=== PATIENT | male | born 1950 | race Caucasian/White ===

== ENCOUNTER 2018-06-14 17:32 | Emergency (ER) | payer MEDICARE, BC ==
[2018-06-14] MEDS ORDERED: AMOXICILLIN/POTASSIUM CLAV 875MG/125MG TABLET PO ONE (18:07)
[2018-06-14] MEDS ORDERED: Diph,Pert(Acell),Tet Vac 0.5 ML SYR IM ONE (18:08)
--- NOTE | 2018-06-14 18:12 | Emergency Department Record ---
History of Present Illness - General Chief Complaint: Animal Bite Stated Complaint: DOG BITE Time Seen by Provider: 06/14/18 18:00 Source: Patient Mode of Arrival: Ambulatory Limitations: No limitations - History of Present Illness Initial Comments: 67 yo male presents with a dog bite to the right thigh. He was at a local garage sale and a [place] Justice approached him and bit his right upper leg. He is unsure of the date of his last tetanus. The dogs are healthy to his knowledge and belong to the home edger tailer and can be monitored. Dr Li is his PCP MD Complaint: Animal bite Right: Thigh Animal: Dog Description: Household pet Mechanism: Bite Pain Description: Dull, Burning Context: Unprovoked Associated Symptoms: Bleeding - Related Data Home Medications Medication Instructions Recorded Confirmed Last Taken Amlodipine Bes/Olmesartan Med 1 each PO DAILY 06/14/18 06/14/18 Unknown [Amlodipine-Olmesartan 5-40 mg] Dutasteride/Tamsulosin HCl 1 tab PO DAILY 06/14/18 06/14/18 Unknown [Dutasteride-Tamsulosin 0.5-0.4] Previous Rx's Medication Instructions Recorded Amoxicillin/Potassium Clav 1 tab PO BID #13 tab 06/14/18 [Augmentin 875-125 Tablet] Allergies Allergy/AdvReac Type Severity Reaction Status Date / Time No Known Drug Allergies Allergy Verified 05/30/15 12:42 Travel Screening - Travel/Exposure Within Last 30 Days Have you traveled within the last 30 days?: No - Travel/Exposure Within Last Year Have you traveled outside the [place] in the last year?: No - Additonal Travel Details Have you been exposed to anyone with a communicable illness?: No - Travel Symptoms Symptom Screening: None Review of Systems Constitutional: Denies: Chills, Fever, Weakness Eyes: Denies: Eye discharge ENT: Denies: Congestion Respiratory: Denies: Cough Cardiovascular: Denies: Chest pain Endocrine: Denies: Fatigue Gastrointestinal: Denies: Abdominal pain, Diarrhea, Nausea, Vomiting Genitourinary: Denies: Dysuria Musculoskeletal: Reports: Myalgia. Denies: Arthralgia, Back pain Skin: Reports: Other. Denies: Bruising, Change in color Neurological: Denies: Headache Psychiatric: Denies: Anxiety Hematological/Lymphatic: Denies: Easy bleeding, Easy bruising Past Medical History - SOCIAL HISTORY Smoking Status: Never smoker Alcohol Use: Occasional Drug Use: None - RESPIRATORY Hx Respiratory Disorders: Yes Hx Sleep Apnea: Yes Hx of CPAP: Yes - CARDIOVASCULAR Hx Cardio Disorders: Yes Hx Hypertension: Yes - NEURO Hx Neuro Disorders: No - GI Hx GI Disorders: Yes Hx of Polyps: Yes - Hx Genitourinary Disorders: No - ENDOCRINE Hx Endocrine Disorders: No - MUSCULOSKELETAL Hx Musculoskeletal Disorders: No - PSYCH Hx Psych Problems: Yes Comment:: bipolar - HEMATOLOGY/ONCOLOGY Hx Hematology/Oncology Disorders: No Family Medical History Any Significant Family History?: No Hx Heart Disease: Father Hx HTN: Father, Mother Physical Exam - General General Appearance: Alert, Oriented x3, Cooperative, No acute distress Limitations: No limitations - Head Head exam: Atraumatic - Eye Eye exam: Normal appearance - ENT ENT exam: Normal exam Ear exam: Normal external inspection Nasal Exam: Normal inspection - Neck Neck exam: Normal inspection - Rectal Rectal exam: Deferred - exam: Deferred - Extremities Extremities exam: Full ROM, Normal capillary refill. negative: Normal inspection, Joint swelling, Tenderness Image of Full Body: 1 - very superficial abrasion with minimal tissue injury - Neurological Neurological exam: Alert, Oriented X3 - Psychiatric Psychiatric exam: Normal affect, Normal mood - Skin Skin exam: Other. negative: Intact Course Vital Signs 06/14/18 17:41 Temperature 97.6 F Pulse Rate 94 H Respiratory 18 Rate Blood Pressure 151/94 Pulse Ox 97 - Reevaluation(s) Reevaluation #1: 06/14/18 18:14 Tetans was updated Animal Control form completed by RN Augmentin Rx provided Disposition Disposition: Discharge Clinical Impression: Dog bite Qualifiers: Encounter type: initial encounter Qualified Code(s): W54.0XXA - Bitten by dog, initial encounter Disposition: Home, Self-Care Condition: (1) Good Instructions: Animal Bite (ED) Additional Instructions: Clean the area once daily See your doctor or return if you have pain, swelling, fever or spreading redness Take the Augmentin 2 times daily until gone Prescriptions: Amoxicillin/Potassium Clav [Augmentin 875-125 Tablet] 1 tab PO BID #13 tab Forms: Patient Portal Access Time of Disposition: 18:10 Quality - Quality Measures Quality Measures: N/A - Blood Pressure Screening Does Patient Have Any of the Following: No Blood Pressure Classification: Hypertensive Reading Systolic Measurement: 148 Diastolic Measurement: 78 Screening for High Blood Pressure: < Pre-Hypertensive BP, F/U Documented > [ [id number]] Pre-Hypertensive Follow-up Interventions: Referral to alternative/primary care provider.
== END 2018-06-14 18:28 | disposition home or self-care (01) ==
LOC: ER 17:32
DX: S71.151A Open bite, right thigh, initial encounter (principal); W54.0XXA Bitten by dog, initial encounter; Y92.009 Unspecified place in unspecified non-institutional (private) residence as the place of occurrence of the external cause; I10 Essential (primary) hypertension
CPT/HCPCS: 90715; 96372; 99282; 99283

== ENCOUNTER 2018-11-03 08:02 | Day surgery (SDC) | payer BC, MEDICARE ==
[2018-11-03] MEDS ORDERED: PROPOFOL 10 MG/ML VIAL IV ONE (08:03)
[2018-11-03] MEDS ORDERED: LIDOCAINE 2% MDV (20MG/ML) 20ML VIAL IV ONE (08:03)
--- NOTE | 2018-11-04 08:50 | Operative Note ---
OPERATION: COLONOSCOPY to the cecum with cold snare polypectomy x1. INDICATION: Prior history of adenomatous polyps. The patient returns after 3 years for surveillance. His last preparation was fair. He does have a history of a redundant colon. ANESTHESIA: Intravenous sedation was administered by the department of anesthesiology and included Diprivan titrated to effect. PROCEDURE: Following informed consent from this alert individual including a discussion of the risks and benefits of the procedure and an opportunity for the patient to ask questions, the patient was in the left lateral decubitus position. A digital rectal examination was performed. No abnormalities were noted. Following this, the Olympus [id number] video colonoscope was inserted into the rectum without resistance. The rectal mucosa had a normal appearance with normal folds and distensibility. There was a 5 mm polyp noted in the distal rectum which was removed with cold snare polypectomy and suctioned through the endoscope into a collection trap. The colonoscope was then further advanced up through the colon to the level of the cecum with some abdominal pressure support to facilitate reaching the cecum itself. The bowel was extremely redundant. The cecum was defined by noting the ileocecal valve and cecal pouch. The appendiceal orifice was also briefly visualized. There was some retained stool and debris in the cecum limiting somewhat the complete evaluation of the mucosal base. As best visualized, no large polyps or tumors were noted. From this point, the colonoscope was then slowly withdrawn. There were mild areas of retained stool most of which could be washed away with water wash. No additional polyps were seen throughout. There were no other mucosal changes. Retroflexion in the rectum did reveal small internal hemorrhoids. The endoscope was straightened and removed. The patient tolerated the procedure well and was returned to the recovery area in stable condition. IMPRESSION: 1. A 5 mm distal rectal polyp removed with cold snare polypectomy. 2. Small internal hemorrhoids. 3. Markedly redundant colon. 4. Fair colon preparation. RECOMMENDATIONS: The patient was advised to have repeat colonoscopy in 3 years' time for surveillance due to the fair preparation today. Further recommendations will be forthcoming pending pathology. Followup will also be with Brayan Li DO. As always, thank you for allowing me to participate in the care of your patient. CONSTANTINE
== END 2018-11-03 09:55 | disposition home or self-care (01) ==
LOC: HOP 08:02
PROVIDERS: ATTEND Internal Medicine Gastroenterology
DX: Z09 Encounter for follow-up examination after completed treatment for conditions other than malignant neoplasm (principal); Z86.010 Personal history of colon polyps; D12.8 Benign neoplasm of rectum; K64.8 Other hemorrhoids; Q43.8 Other specified congenital malformations of intestine; I10 Essential (primary) hypertension